=== PATIENT | male | born 1955 | race Caucasian/White ===

== ENCOUNTER 2016-11-24 14:03 | Inpatient (IN) ==
[2016-11-24] MEDS ORDERED: KLONOPIN PO PRN (15:31)
--- NOTE | 2016-11-24 16:01 | EKG Report ---
Test Performed on : 11/24/2016 3:40:45 PM Test Reason : chest pain Blood Pressure : / mmHG Vent. Rate : 053 BPM Atrial Rate : 053 BPM P-R Int : 194 ms QRS Dur : 112 ms QT Int : 416 ms P-R-T Axes : 012 018 055 degrees QTc Int : 390 ms Sinus bradycardia. Otherwise normal ECG No previous ECGs available Confirmed by Tony Ferrell MD ([id number]) on 11/26/2016 7:15:52 AM
--- NOTE | 2016-11-24 16:20 | Diag Imaging Result Doc PS360 ---
CHEST-2 VIEWS - 11/24/2016 INDICATION: chest pain TECHNIQUE: COMPARISON: None FINDINGS: There are some linear atelectasis or scarring in the left midlung laterally. No focal infiltrates, pneumothorax, or pleural effusion. Heart size is normal. IMPRESSION: No substantial acute disease. Electronically signed by Александр Calvert 11/24/2016 4:17 PM
[2016-11-24 16:29] LABS: MANUAL DIFF NEEDED? NO
[2016-11-24 16:37] LABS: BASO% 0.4 % (0.0-0.8); EOS% 2.5 % (0.0-10.0); HEMATOCRIT 45.2 % (42.0-52.0); HEMOGLOBIN 15.1 g/dL (14.0-18.0); IMM GRAN# 0.02 X1000 (0.0-0.04); IMM GRAN% 0.3 % (0.0-0.5); LYMPH# 3.68 X1000 (1.2-3.4); MCH 31.1 PG (27-31); MCHC 33.4 g/dL (33-37); MCV 93.2 FL (81-99); MONO# 0.57 X1000 (0.11-0.59); MONO% 7.1 % (1.7-9.3); NEUT% 43.7 % (42.2-75.2); PLT 225 X1000 (130-400); RBC 4.85 XMIL (4.7-6.1)
[2016-11-24] MEDS ORDERED: ASPIRIN PO STA (16:46)
[2016-11-24] MEDS: NS 1,000 ML IV SCH (16:52)
[2016-11-24 17:28] LABS: AGAP 16; BUN 13 mg/dL (8-22); CHLORIDE 100 mmol/L (98-107); COSMO 276; POTASSIUM 4.4 mmol/L (3.5-5.1); SODIUM 139 mmol/L (136-145); TCO2 23 mmol/L (25-35)
[2016-11-24 17:29] LABS: ALBUMIN 4.7 g/dL (3.5-5.0); ALKALINE PHOSPHATASE 67 U/L (32-122); CALCIUM 9.2 mg/dL (8.8-10.2); GOT 27 U/L (10-34); GPT 27 U/L (10-44); TOTAL BILIRUBIN 0.34 mg/dL (0.20-1.00); TOTAL PROTEIN 7.8 g/dL (6.3-8.3)
[2016-11-24] MEDS ORDERED: ZOFRAN IV PRN (17:29)
[2016-11-24] MEDS ORDERED: RESTORIL PO PRN (17:29)
[2016-11-24] MEDS ORDERED: MAGNESIUM SULFATE 3 GM in NS 100 ML IV PRN (17:29)
[2016-11-24] MEDS ORDERED: NITROGLYCERIN SL PRN (17:29)
[2016-11-24] MEDS ORDERED: PERCOCET-5 PO PRN (17:29)
[2016-11-24] MEDS ORDERED: CEPACOL SORE THROAT LOZENGE MT PRN (17:29)
[2016-11-24] MEDS ORDERED: MILK OF MAGNESIA PO PRN (17:29)
[2016-11-24] MEDS ORDERED: XANAX PO PRN (17:29)
[2016-11-24] MEDS ORDERED: TYLENOL PO PRN (17:29)
[2016-11-24] MEDS ORDERED: KLOR-CON PO PRN ×3 (17:29)
[2016-11-24] MEDS ORDERED: DULCOLAX PR PRN (17:29)
[2016-11-24] MEDS ORDERED: MAGNESIUM SULFATE 2 GM in STERILE WATER INJ. 50 ML IV PRN ×4 (17:29)
[2016-11-24] MEDS ORDERED: PNEUMOVAX 23 IM ONE (17:45)
[2016-11-24 18:07] LABS: INR 1.39; PROTIME 14.9 Seconds (9.2-11.7)
[2016-11-24] MEDS: NORCO-10 PO PRN (21:53)
[2016-11-24] MEDS: VOLTAREN PO SCH (21:57)
--- NOTE | 2016-11-24 22:09 | HISTORY AND PHYSICAL ---
HISTORY OF PRESENT ILLNESS: Mr. Cruz is a 61-year-old, white gentleman who was admitted with recurrent chest pains. Last had some chest pains and had significant T-wave inversion in lead V1 to V4 at that time. However, he went home as it was and did not want to come in until Thursday. He had some chest pain. He says that it happens when he bends with a questionable history about angina or chest pain with exertion. He has a strong family history of coronary artery disease for his parents as well as 1 of the elder brothers who in his late 50's. He has a history of mild hypertension. As far as I can tell, he was treated with Coumadin until yesterday. He had a history of chronic DVT and getting Coumadin off and on and has been taking it now for several years. He has a history of recurrent gout. ALLERGIES: He has no known allergies. SOCIAL HISTORY: He has been a chronic heavy smoker. Smokes about half a pack of cigarettes per day. He used to drink heavy, however for last 4-5 years he has not been drinking. MEDICATIONS: Simvastatin, temazepam, potassium chloride, hydrocodone, omeprazole, nitroglycerin p.r.n. REVIEW OF SYSTEMS: Other than chest pain, is negative for the time being. Has history of recurrent gout and gets pain in his ankles and feet off and on. PHYSICAL EXAMINATION: VITAL SIGNS: Temperature normal, pulse of 50 per minute, respiratory rate 14, blood pressure 162/84. HEENT: Head normocephalic. Pupils PERRLA. Fundus examination normal. Neck supple. JVP normal. ENT examination unremarkable. There is no evidence of lymphadenopathy, thyroid enlargement, pedal edema, calf tenderness, anemia, cyanosis or clubbing. Pedal pulses well felt. BREAST: Normal. CHEST: Normal inspection. LUNGS: Clear on auscultation. PMI in the normal position. HEART: Sounds normal. No murmur, gallop or rub noted. ABDOMEN: Nondistended. Hernial orifices normal. No guarding, rigidity, free fluid, masses, or organomegaly. Bowel sounds normal. RECTAL: Deferred. SUPERVISOR TYPE PHOTOGRAPHY/HIGHER FUNCTIONS: Normal. Cranial nerves normal. MOTOR AND SENSORY SYSTEM: Examination unremarkable. Deep tendon reflexes normal. Plantars downgoing. SKULL AND SPINE: Examination normal for age. No cerebellar signs or signs of meningeal irritation. LOCOMOTOR/SKIN: Unremarkable except for painful movements of the feet. PAST SURGICAL HISTORY: Revealed a history of 1 back surgery and 1 surgery on his left elbow. cc: Clarence Marc MD
--- NOTE | 2016-11-24 23:35 | CONSULTATION ---
DATE OF CONSULTATION: 11/24/2016 IMPRESSION: 1. Recurrent chest discomfort suspicious for unstable angina. 2. Hypertension. 3. Hypercholesterolemia. 4. Chronic cigarette use ongoing. 5. Positive family history of early coronary disease. RECOMMENDATIONS: Given clinical presentation and coronary risk profile, favor pursuit of left heart catheterization with selective coronary angiography and possible coronary angioplasty/stenting to follow. The rationale for this approach as well as the potential hazards were discussed with the patient and his and he wished to proceed. HISTORY: This 61-year-old white male with past history of hypertension, hypercholesterolemia, chronic cigarette use and positive family history of early coronary disease was admitted through the emergency room for evaluation of chest pain. He reports a 2-3 week history of recurrent episodes of substernal chest tightness. He is not very active physically due to a chronic back problem and walks with a cane. He has not noted discomfort to be exertion related. However he has noted that it can be provoked if he bends over. He is not aware of any history of reflux and gives no symptoms of such. He has history of DVT about 15 years ago following previous cardiac catheterization procedure. DVT was in the right lower extremity. He had been on warfarin ever since that time and recently was taken off this medication to facilitate further evaluation of his chest pain. PAST MEDICAL HISTORY: 1. Hypertension. 2. Hypercholesterolemia. 3. Previous coronary geography 15 years ago reportedly showed no significant coronary stenosis. 4. Right lower extremity DVT following previous cardiac catheterization 15 years ago. 5. Hypercholesterolemia. PAST SURGICAL HISTORY: Includes lumbar spine surgery and left elbow surgery. ALLERGIES: No known drug allergies. MEDICATIONS: Prior to admission as listed. SOCIAL HISTORY: He is . He is retired. Previously worked in a [employer]. He smokes 1/2 pack of cigarettes per day. He previously smoked 1 pack of cigarettes per day for many years and cut back 1 year ago. He does not use alcohol. FAMILY HISTORY: Positive for early coronary disease. His father suffered myocardial infarction at age 40 and his brother had coronary bypass graft at age 55. REVIEW OF SYSTEMS: Pulmonary: Negative. Gastrointestinal: Negative. Constitutional: Negative. The remainder of review of systems negative with 14 total systems reviewed. PHYSICAL EXAMINATION: General: This is a pleasant, older white male in no distress. Vital Signs: As recorded are stable include blood pressure 162/84, heart rate 50 and regular. HEENT Exam: Extraocular movements intact. Mucous membranes are moist. Neck: Supple without JV distention. There are no carotid bruits. Chest: Clear to auscultation. Cardiac: Reveals a regular rate and rhythm without appreciable murmur or gallop. Abdomen: Soft, nontender. Bowel sounds are normal. Extremities: Without edema. Neurologic Exam: Reveals him to be alert, fully oriented. Speech is fluent. Moves all 4 extremities equally well. Skin: Warm dry. Psychiatric: Reveals his mood to be appropriate. DIAGNOSTIC DATA: ECG demonstrates sinus bradycardia but is otherwise within normal limits. Laboratory data demonstrates hematocrit 45.2, platelet count 225,000, white blood cell count 8.0. Additional laboratory studies pending. cc: MD Clarence Corral MD
--- NOTE | 2016-11-25 03:39 | HISTORY AND PHYSICAL ---
ADDENDUM: IMPRESSION: 1. Chest pain with definite EKG changes. 2. History of heavy smoking. 3. Mild hypertension. 4. History of strong family history of cardiac illness. We will get a Cardiology consult. Get cardiac isoenzymes. cc: Clarence Marc MD
--- NOTE | 2016-11-25 05:14 | EKG Report ---
Test Performed on : 11/24/2016 9:48:55 PM Test Reason : chest pain Blood Pressure : / mmHG Vent. Rate : 053 BPM Atrial Rate : 053 BPM P-R Int : 186 ms QRS Dur : 106 ms QT Int : 422 ms P-R-T Axes : 017 032 042 degrees QTc Int : 395 ms Sinus bradycardia. Otherwise normal ECG When compared with ECG of 24-NOV-2016 15:40, (Unconfirmed) No significant change was found Confirmed by Tony Ferrell MD ([id number]) on 11/26/2016 7:16:14 AM
[2016-11-25 06:23] LABS: INR 1.31
[2016-11-25 06:25] LABS: AGAP 11; ALBUMIN 4.1 g/dL (3.5-5.0); ALKALINE PHOSPHATASE 56 U/L (32-122); BUN 13 mg/dL (8-22); CALCIUM 8.9 mg/dL (8.8-10.2); CHLORIDE 106 mmol/L (98-107); COSMO 285; GOT 22 U/L (10-34); GPT 22 U/L (10-44); POTASSIUM 4.6 mmol/L (3.5-5.1); SODIUM 143 mmol/L (136-145); TCO2 26 mmol/L (25-35); TOTAL BILIRUBIN 0.37 mg/dL (0.20-1.00); TOTAL PROTEIN 6.4 g/dL (6.3-8.3)
[2016-11-25] MEDS: PRILOSEC PO SCH (06:27)
[2016-11-25] MEDS: ZOCOR PO SCH (08:12)
[2016-11-25] MEDS: VOLTAREN PO SCH ×2 (08:12→20:05)
--- NOTE | 2016-11-25 08:55 | PROGRESS NOTE ---
DATE: 11/25/2016 SUBJECTIVE: The patient continues without recurrence of chest discomfort. Denies dyspnea on room air. OBJECTIVE: Vital Signs: Blood pressure 152/72, heart rate 54 and regular. Neck: There is no significant jugular venous distention. Chest: Clear to auscultation. Cardiac Examination: Regular rate and rhythm without appreciable murmur or gallop. Extremities: There is no evidence of peripheral edema. Lab Data: Demonstrates INR 1.3. Troponin on presentation less than 0.01. IMPRESSION: 1. Recurrent chest discomfort, suspicious for unstable angina. 2. Hypertension. 3. Hypercholesterolemia. 4. Positive family history of coronary disease. 5. History of smoking. RECOMMENDATIONS: 1. Left heart catheterization with selective coronary angiography as discussed yesterday evening. Further plans of management to follow. 2. Smoking cessation again discussed. cc: MD Clarence Corral MD
--- NOTE | 2016-11-25 09:37 | PROGRESS NOTE ---
DATE: 11/25/2016 Mr. Cruz was admitted yesterday with chest pain. He had some EKG changes. He is going to go through the catheterization today as suggested by Dr. Ann, the chief radiation therapist. His INR is 1.3. We will continue with the current management on him. -5 cc: Clarence Marc MD
[2016-11-25] MEDS: NORCO-10 PO PRN ×2 (11:56→21:19)
[2016-11-25] MEDS: NS 1,000 ML IV SCH ×2 (20:05→22:26)
[2016-11-26 05:48] LABS: INR 1.15; PROTIME 12.2 Seconds (9.2-11.7)
[2016-11-26 06:02] LABS: AGAP 12; BUN 17 mg/dL (8-22); CALCIUM 8.9 mg/dL (8.8-10.2); CHLORIDE 105 mmol/L (98-107); COSMO 286; MAGNESIUM 1.7 mg/dL (1.5-2.7); POTASSIUM 4.3 mmol/L (3.5-5.1); SODIUM 143 mmol/L (136-145); TCO2 26 mmol/L (25-35)
[2016-11-26] MEDS: PRILOSEC PO SCH (06:11)
[2016-11-26 07:50] LABS: MANUAL DIFF NEEDED? NO
[2016-11-26 07:52] LABS: BASO% 0.1 % (0.0-0.8); EOS# 0.22 X1000 (0.0-0.7); EOS% 2.9 % (0.0-10.0); HEMATOCRIT 42.2 % (42.0-52.0); LYMPH# 3.58 X1000 (1.2-3.4); LYMPH% 47.9 % (20.5-51.1); MCH 30.8 PG (27-31); MCHC 33.2 g/dL (33-37); MCV 92.7 FL (81-99); MPV 11.5 FL (7.4-10.4); NEUT% 41.1 % (42.2-75.2); PLT 209 X1000 (130-400); RBC 4.55 XMIL (4.7-6.1)
[2016-11-26 08:14] VITALS: BP 168/73
[2016-11-26] MEDS: ZOCOR PO SCH (08:25)
[2016-11-26] MEDS: VOLTAREN PO SCH (08:25)
[2016-11-26] MEDS ORDERED: HEPARIN ONE (08:36)
[2016-11-26] MEDS ORDERED: HEPARIN 1000 UNITS/NS 2,000 UNIT/1,000 ML IV.SOLN ONE (08:37)
--- NOTE | 2016-11-26 08:57 | PROGRESS NOTE ---
DATE: 11/26/2016 Mr. Cruz is doing better. He does not have any chest pain this morning. INR has almost come to baseline. He is going to go for the graft studies today. We will continue the current management. cc: Clarence Marc MD
[2016-11-26] MEDS ORDERED: CLAVE TWINSITE 32 IN 11959 ONE (09:47)
[2016-11-26] MEDS ORDERED: VERSED ONE (09:47)
[2016-11-26] MEDS ORDERED: DILAUDID ONE (09:47)
[2016-11-26] MEDS ORDERED: ASPIRIN ONE (10:28)
[2016-11-26] MEDS ORDERED: NITROGLYCERIN ONE (10:38)
--- NOTE | 2016-11-26 11:09 | CARDIAC CATH REPORT ---
PROCEDURE NAME: - INDICATION FOR THE PROCEDURE: Unstable angina. PROCEDURES PERFORMED: 1. Left heart catheterization. 2. Selective coronary angiography. 3. Left ventriculogram. PROCEDURE IN DETAIL: Mr. Cruz was brought to the catheterization laboratory in the fasting state. Informed consent was obtained. Prepped in usual fashion. He was anesthetized over the right radial artery after Rohit's test was proved adequate. A 5-[place] sheath was placed via true Seldinger technique. Radial cocktail was administered. Catheters were introduced and hemodynamic measurements made of the ascending and descending thoracic aorta. Coronary angiography was performed in multiple views using JL3.5 and JR4 diagnostic catheters. Left heart catheterization and left ventriculogram were performed using the JR4. At the conclusion of the procedure all sheaths and catheters removed. TR band was left inflated at 8 mL of air. Good capillary refill. Good hemostasis. Eighty milliliters of IV contrast. Five to 10 mL of blood loss. FINDINGS: 1. The left main appears relatively normal. 2. Left anterior descending had a proximal 70 to 80% lesion with a mid vessel that appears normal as well as the distal vessel. 3. Circumflex originates from the left main. There is a late proximal 40% lesion with a normal mid and distal vessel. 4. Right coronary originates from the right coronary cusp. There is 40 to 50% eccentric proximal lesion with a mid 30 to 40% diffuse disease and minor luminal irregularities noted in the distal vessel. 5. Left ventriculogram demonstrates an EF of 60% with normal wall motion. 6. Aortic blood pressure 142/73 with a mean of 103. Left ventricle pressure is 147/2 with an LVEDP of 6. ASSESSMENT: Mr. Cruz is a 61-year-old male who presented with symptoms suggestive of unstable angina. PLAN: He has a proximal LAD lesion that appears severe. We will plan on transferring him over to [facility] for potential PCI. Further recommendations to follow the procedure. cc: MD Clarence Tafoya MD
--- NOTE | 2016-11-27 11:42 | DISCHARGE SUMMARY ---
ADMISSION DATE: 11/24/2016 DISCHARGE DATE: 11/26/2016 HISTORY AND HOSPITAL COURSE: Mr. Cruz, who is a 61-year-old white gentleman, was admitted with severe chest pain. He had ischemic changes on the EKG. His cardiac cath study revealed the appearance of 70 to 80% blockage in the LAD. His lab data revealed normal CBC. INR was 1.15. Electrolytes were normal. Troponin was normal. After the catheterization studies he was transferred to [facility] for further management. FINAL DIAGNOSES: 1. Unstable angina. 2. Coronary artery disease. 3. Hypertension. cc: Clarence Marc MD
== END 2016-11-26 11:04 | disposition short-term general hospital (02) ==
LOC: DIRADM 14:03 → 4N 15:12
PROVIDERS: ADMIT Internal Medicine; ATTEND Internal Medicine